=== PATIENT | female | born 1955 | race Caucasian/White ===

== ENCOUNTER 2016-03-07 13:58 | Emergency (ER) | payer OTHER, MEDICAID ==
--- NOTE | 2016-03-07 14:03 | EDPHY ---
H & P Time Seen by Provider: 03/07/16 14:02 HPI/ROS: CHIEF COMPLAINT: Shortness of breath, chest pain. Limitations: challenging historian HISTORY OF PRESENT ILLNESS: The patient is a 60-year-old female with a history of COPD and PE who presents via EMS with chest pain and shortness of breath, onset earlier today. Per EMS she overstayed her allotted time at [facility]. When the hotel management went to ask her to leave the hotel, she complained of shortness of breath and chest pain. EMS was called and on their arrival, she continued to plate of shortness of breath. Her vital signs were normal and her oxygen saturation was 95% on room air. She is unable to explain how long she has been short of breath and is to explain the duration or quality of the chest pain. She denies chest pain now. She has not recently been ill and does not have a cough. She is not hypoxic on arrival. She reports she is supposed to have an Echocardiogram but she does not know why. REVIEW OF SYSTEMS: A complete 10-point review of systems was performed and is negative except for those items mentioned in the HPI. Past Medical/Surgical History: PE, back surgeries, COPD. Social History: No alcohol use, nonsmoker. Physical Exam: General Appearance: Alert, anxious Eyes: Pupils equal and round, no conjunctival pallor or injection ENT, Mouth: Mucous membranes moist Neck: Normal inspection Respiratory: Lungs are clear to auscultation Cardiovascular: Regular rate and rhythm Gastrointestinal: Abdomen is soft and non-tender Neurological: A&O, nonfocal exam Skin: Warm and dry, no rash Extremities: Nontender, no pedal edema Psychiatric: Anxious Constitutional: Initial Vital Signs Temperature (C) 36.5 C 03/07/16 13:58 Heart Rate 90 03/07/16 13:58 Respiratory Rate 21 H 03/07/16 13:58 Blood Pressure 164/79 H 03/07/16 13:58 O2 Sat (%) 98 03/07/16 13:58 Allergies/Adverse Reactions: propoxyphene HCl [From Darvon] Allergy (Mild, Verified 03/07/16 14:06) Rash Home Medications: Medication Instructions Recorded LEVOTHYROXINE SODIUM 05/07/13 Amitiza 03/07/16 DULoxetine 03/07/16 GABAPENTIN 03/07/16 Levothyroxine 03/07/16 Meloxicam 03/07/16 Ranitidine HCl 03/07/16 Symbicort 03/07/16 traZODone 03/07/16 Medical Decision Making - Diagnostics EKG Interpretation: The 12 lead EKG was interpreted by myself. See hard copy and/or "tracemaster" electronic copy for interpretation. Sinus rhythm rate 99. Low voltage in frontal leads. Imaging: Chest x-ray reviewed by me reveals no acute process. ED Course/Re-evaluation: This patient presents with shortness of breath and chest pain. Initial vital signs and physical exam are normal. Stat EKG reveals no evidence of ischemia or dysrhythmia. No evidence of bronchospasm on exam. An IV was established and labs ordered. Chest x-ray, EKG ordered. I re-evaluated this patient multiple times. She mainly complained of feeling anxious and being out of her Valium. Valium 5 mg orally was given. The casework specialist was involved in this patient's care. She helped arrange an appointment with the patient's primary care physician, Dr. Gilliland, for tomorrow. She also helped arrange a place for the patient to stay today. I do not feel that this patient has an acute cardiopulmonary problem today. D-dimer is normal and with normal vital signs and oxygen saturation, I feel that I can safely exclude pulmonary embolism as a diagnosis. I feel that she is safe and stable for discharge. Differential Diagnosis: Differential diagnosis includes though it is not limited to pneumonia, pneumothorax, pulmonary embolism, aortic dissection, pericarditis, acute coronary syndrome. - Data Points Laboratory Results: Laboratory Results 03/07/16 13:56 03/07/16 13:56 03/07/16 13:56 WBC 6.99 10^3/uL (3.80-9.50) RBC 5.13 10^6/uL (4.18-5.33) Hgb 15.4 g/dL (12.6-16.3) Hct 44.7 % (38.0-47.0) MCV 87.1 fL (81.5-99.8) MCH 30.0 pg (27.9-34.1) MCHC 34.5 g/dL (32.4-36.7) RDW 16.6 H % (11.5-15.2) Plt Count 424 H 10^3/uL (150-400) MPV 8.7 fL (8.7-11.7) Neut % (Auto) 63.0 % (39.3-74.2) Lymph % (Auto) 27.5 % (15.0-45.0) [place] % (Auto) 8.0 % (4.5-13.0) Eos % (Auto) 0.3 L % (0.6-7.6) Baso % (Auto) 0.9 % (0.3-1.7) Nucleat RBC Rel Count 0.0 % (0.0-0.2) Absolute Neuts (auto) 4.41 10^3/uL (1.70-6.50) Absolute Lymphs (auto) 1.92 10^3/uL (1.00-3.00) Absolute Monos (auto) 0.56 10^3/uL (0.30-0.80) Absolute Eos (auto) 0.02 L 10^3/uL (0.03-0.40) Absolute Basos (auto) 0.06 10^3/uL (0.02-0.10) Absolute Nucleated RBC 0.00 10^3/uL (0-0.01) Immature Gran % 0.3 % (0.0-1.1) Immature Gran # 0.02 10^3/uL (0.00-0.10) D-Dimer 0.32 ug/mLFEU (0.00-0.50) Sodium 143 mEq/L (134-144) Potassium 3.9 mEq/L (3.5-5.2) Chloride 101 mEq/L (97-110) Carbon Dioxide 29 mEq/l (22-31) Anion Gap 13 mEq/L (8-16) BUN 6 L mg/dL (7-23) Creatinine 0.5 L mg/dL (0.6-1.0) Estimated GFR > 60 Glucose 87 mg/dL (70-100) Calcium 9.9 mg/dL (8.5-10.4) Departure - Departure Disposition: Home, Routine, Self-Care Clinical Impression: COPD (chronic obstructive pulmonary disease) Qualifiers: Qualifier Code: (J44.9) Chronic obstructive pulmonary disease, unspecified Condition: Good Instructions: COPD (Chronic Obstructive Pulmonary Disease) (ED) Additional Instructions: You have an appointment with Dr. Gilliland, on March 08, at 4:00pm. Return to the emergency department if you experience serious worsening of condition. Referrals: [facility] [Outside] - As per Instructions Report Scribed for: Heena Kraus Report Scribed by: Arun Martin Date of Report: 03/07/16 Time of Report: 14:03 Physician Review and Approval Statement: 03/07/16 14:03 Portions of this note were transcribed by a biomedical repair technician. I personally performed a history, physical exam, medical decision making, and confirmed accuracy of information the transcribed note.
[2016-03-07 14:19] VITALS: PULSE 90
[2016-03-07 14:22] LABS: % IMMATURE GRANULYOCYTES 0.3 % (0.0-1.1); ABSOLUTE IMMATURE GRANULOCYTES 0.02 10^3/uL (0.00-0.10); ADD DIFF? NO; ADD MORPH? NO; ADD SCAN? NO; ATYPICAL LYMPHOCYTE FLAG 0 (0-99); FRAGMENT RBC FLAG 0 (0-99); HEMATOCRIT 44.7 % (38.0-47.0); HEMOGLOBIN 15.4 g/dL (12.6-16.3); LEFT SHIFT FLG 0 (0-99); LIPEMIA HEMOLYSIS FLAG 90 (0-99); MEAN CELL HEMOGLOBIN CONCENTR. 34.5 g/dL (32.4-36.7); MEAN CELL VOLUME 87.1 fL (81.5-99.8); MEAN PLATELET VOLUME 8.7 fL (8.7-11.7); PLATELET CLUMPS FLAG 10 (0-99); PLATELET COUNT 424 10^3/uL (150-400); RED BLOOD CELL COUNT 5.13 10^6/uL (4.18-5.33); RED CELL DISTRIBUTION WIDTH 16.6 % (11.5-15.2)
[2016-03-07 14:34] LABS: ANION GAP 13 mEq/L (8-16); CALCIUM 9.9 mg/dL (8.5-10.4); CARBON DIOXIDE 29 mEq/l (22-31); CHLORIDE 101 mEq/L (97-110); CREATININE 0.5 mg/dL (0.6-1.0); GLOMERULAR FILTRATION RATE > 60; GLUCOSE 87 mg/dL (70-100); POTASSIUM 3.9 mEq/L (3.5-5.2); SODIUM 143 mEq/L (134-144)
[2016-03-07] MEDS ORDERED: ONDANSETRON 4 MG/2 ML VIAL ONE (14:45)
[2016-03-07] MEDS ORDERED: ONDANSETRON 4 MG/2 ML VIAL IVP ONE (14:48)
[2016-03-07] MEDS ORDERED: DIAZEPAM 5 MG TAB PO ONE (14:48)
--- NOTE | 2016-03-07 14:48 | DX ---
PA and Lateral Chest on March 07, 2016 Clinical Indications: Dyspnea. Comparison: August 28, 2012. Findings: Hyperinflation of the lungs is unchanged. Multilevel surgical hardware from the lower cerv ical spine through the upper lumbar spine is present and terminates off the edges of the film superio rly and inferiorly. Bilateral nipples are noted on the AP. There are no nodules on the lateral. Lungs are hyperinflated consistent with COPD. Heart size is normal. Pulmonary vasculature is unremarkable. Impression: 1. Unchanged emphysema. No evidence of acute infiltrate. 2. Multilevel surgical hardware unchanged.
--- NOTE | 2016-03-07 14:50 | CPEKG ---
Heart Rate: 99 RR Interval: 606 P-R Interval: 136 QRSD Interval: 70 QT Interval: 380 QTC Interval: 488 P Babb: -5 QRS Babb: 62 T Wave Babb: 68 EKG Severity - BORDERLINE ECG - EKG Impression: SINUS RHYTHM EKG Impression: LOW VOLTAGE IN FRONTAL LEADS EKG Impression: BORDERLINE PROLONGED QT INTERVAL Electronically Signed By: Heena Kraus 07-Mar-2016 14:54:52
[2016-03-07 15:25] VITALS: RESP 16; O2SAT 95
[2016-03-07 16:48] VITALS: BP 122/86; TEMP 98.6
== END 2016-03-07 16:48 | disposition home or self-care (01) ==
LOC: EDUNIT#
DX: J44.9 Chronic obstructive pulmonary disease, unspecified (principal)
CPT/HCPCS: 71020; 93005; 96374; 99285; J2405